=== PATIENT | male | born 1975 | race Caucasian/White ===

== ENCOUNTER 2017-10-18 11:16 | Emergency (ER) | payer OTHER ==
[~2017-10-18] VITALS: Ht 182.9 cm; Wt 95.3 kg
[~2017-10-18 11:16] MED LIST: LOPRESSOR25
[2017-10-18] MEDS ORDERED: SINGULAIR 10 MG10 M1 PO (11:30)
[2017-10-18] MEDS ORDERED: TRAMADOL 50 MG50 MG PO (11:30)
[2017-10-18] MEDS ORDERED: SYMBICORT160 MCG/4. INH (11:30)
[2017-10-18] MEDS ORDERED: PREDNISONE 10 M10 MG PO (12:55)
[2017-10-18] MEDS ORDERED: NORFLEX100 MG PO (12:55)
[2017-10-18] MEDS ORDERED: NORCO 5-325 TA1 EACH PO (12:55)
[2017-10-18 13:14] VITALS: BP 153/98
--- NOTE | 2017-10-19 11:48 | EKG ---
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: Cassandra PADGETT : 1975 Requested By: Freya Huff Order Number: [id number] MD: Jose Garcia Measurements Intervals [place] Rate: 90 P: 71 FL: 136 QRS: 42 QRSD: 80 T: 0 QT: 318 QTc: 389 Interpretive Statements Sinus rhythm ST elev, probable normal early repol pattern Compared to ECG 09/24/2013 20:17:43 ST (T wave) deviation now present Electronically Signed On 10-19-2017 11:48:11 [employer] S[employer] CLERK by Jose Garcia [email or web address] <ELECTRONICALLY SIGNED> By: Jose Garcia MD, [facility] 10/19/17 1148 1144 1144 Jose Garcia MD, [facility] /EPI
== END 2017-10-18 13:15 | disposition home or self-care (01) ==
LOC: M.ERS 11:16
DX: M94.0 Chondrocostal junction syndrome [Tietze] (principal); I10 Essential (primary) hypertension; F17.210 Nicotine dependence, cigarettes, uncomplicated; F10.99 Alcohol use, unspecified with unspecified alcohol-induced disorder